=== PATIENT | female | born 1995 | race Caucasian/White ===

== ENCOUNTER 2020-02-14 11:32 | Emergency (ER) | payer OTHER, SELFPAY ==
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
[2020-02-14 11:50] VITALS: BP 164/89; PULSE 80; RESP 18; TEMP 36.8; O2SAT 99
== END 2020-02-14 12:35 | disposition home or self-care (01) ==
PROVIDERS: Emergency Provider Nurse Practitioner Family
DX: S69.81XA Other specified injuries of right wrist, hand and finger(s), initial encounter (principal); V40.6XXA Car passenger injured in collision with pedestrian or animal in traffic accident, initial encounter
CPT/HCPCS: 73130; 99203; G0463

== ENCOUNTER 2022-04-16 13:42 | Emergency (ER) | payer OTHER, SELFPAY ==
[2022-04-16 13:49] VITALS: BP 150/82; PULSE 89; RESP 20; TEMP 36.8; O2SAT 95
--- NOTE | 2022-04-16 14:14 | ED.URI ---
HPI - URI/Sore Throat General Chief Complaint: Upper Respiratory Infection Stated Complaint: Cough/Shortness of Breath Time Seen by Provider: 04/16/22 13:50 Source: patient and RN notes reviewed History of Present Illness HPI Narrative: Patient is a 26-year-old female who presents to urgent care with complaints of cough, increased shortness of breath. Patient states that she did a tele visit approximately 5 days ago was placed on 40 mg of steroids and cough medication. Patient states that it helped slightly as well as the use of her inhaler. However, states that she feels her shortness of breath has increased as well as hoarseness. Denies any fevers, chest pain. No other acute complaints. No acute distress noted. Patient aware the plan of care. Some parts of this dictation were generated by voice recognition software and may contain typographical and/or grammatical inaccuracies. Related Data Home Medications Medication Instructions Recorded Confirmed albuterol sulfate 90 mcg/actuation See Rx Instructions .Route 04/16/22 04/16/22 aerosol inhaler .COMPLEX PRN SOB Allergies Allergy/AdvReac Type Severity Reaction Status Date / Time No Known Allergies Allergy Verified 04/16/22 14:03 Review of Systems Review of Systems: CONSTITUTIONAL: Denies fever, chills, or sweats. EYES: Denies visual changes, redness, or discharge. ENT: Denies rhinorrhea, congestion, sore throat, or otalgia. Reports of hoarseness CARDIOVASCULAR: Denies chest pain, palpitations, or edema. RESPIRATORY: Reports mild cough, dyspnea GASTROINTESTINAL: Denies abdominal pain, nausea, vomiting, or diarrhea. GENITOURINARY: Denies dysuria or hematuria. SKIN: Denies rash or itching. MUSCULOSKELETAL: Denies back pain, joint pain, or myalgia. NEUROLOGIC: Denies headache, numbness, or weakness. All other systems reviewed are negative, except as documented in HPI. PMFSH Comments At the time of my signature, I reviewed and agree with the nursing past medical, surgical, social, and family history. There is no relevant family history pertinent to the patient complaint. Exam Narrative: GENERAL: This is a well-nourished, well-developed patient, in no apparent distress. HEAD: normocephalic, atraumatic. EYES: PERRL. Sclera clear/white. Vision is grossly intact. EARS: External ears normal, auditory canals clear and without drainage, TMs normal without perforation. Hearing grossly intact. NOSE: External nose normal with no obvious nasal discharge, nares without redness, no rhinorrhea. THROAT: Mucous membranes moist, moderate erythema of posterior pharynx with moderate postnasal drainage NECK: Neck supple CARDIOVASCULAR: Regular rate and rhythm without murmurs, gallops, or rubs. RESPIRATORY: Scant inspiratory wheezes SKIN: warm, intact with no suspicious lesions or rash, good texture and turgor. NEURO: awake, alert, and oriented to person, place and time. There were no obvious focal neurologic abnormalities. EXTREMITIES: No clubbing, cyanosis, or edema. Course Course Level of Care: Express Care Visit Vital Signs Vital signs: Vital Signs Temperature 98.3 F 04/16/22 13:49 Pulse Rate 89 04/16/22 13:49 Respiratory Rate 20 04/16/22 13:49 Blood Pressure 150/82 H 04/16/22 13:49 Pulse Oximetry 95 04/16/22 13:49 Oxygen Delivery Room Air 04/16/22 13:49 Temperature 98.3 F 04/16/22 13:49 Pulse Rate 89 04/16/22 13:49 Respiratory Rate 20 04/16/22 13:49 Blood Pressure 150/82 H 04/16/22 13:49 Pulse Oximetry 95 04/16/22 13:49 Oxygen Delivery Room Air 04/16/22 13:49 Reviewed- Patient is informed that they may have pre-hypertension or hypertension based on a blood pressure reading in the department. I recommend the patient call the primary care provider listed on their discharge instructions or a physician of their choice this week to arrange follow-up for further evaluation of possible pre-hypertension or hypertension. MDM - URI/Sor
[2022-04-16] MEDS: ALBUTEROL SULFATE NEB 2.5 MG/3 ML INH INHALATION (14:27)
[2022-04-16] MEDS: IPRATROPIUM BR 0.02% INH SOLN 0.5 MG/2.5 ML VIAL INHALATION (14:27)
[2022-04-16 15:00] VITALS: PULSE 84; RESP 18; O2SAT 98
== END 2022-04-16 15:00 | disposition home or self-care (01) ==
PROVIDERS: Emergency Provider Nurse Practitioner Family; PCP Nurse Practitioner Family
DX: R06.2 Wheezing (principal); Z87.09 Personal history of other diseases of the respiratory system; Z79.51 Long term (current) use of inhaled steroids
CPT/HCPCS: 87081; 87880; 94640; 99213; G0463